=== PATIENT | male | born 1995 | race Caucasian/White ===

== ENCOUNTER → 2016-11-11 14:07 | Emergency (ER) | payer BC, OTHER ==
[2016-11-11 14:14] VITALS: BP 134/93
--- NOTE | 2016-11-11 15:26 | ED ---
Throat Pain/Nasal Congestion - HPI Summary HPI Summary: 21M presents with sore throat since last wed and then sinus pressure since last ngith. He was told has mono this sun. He prescribed cefuroxime and prednisone. last night develop sinus pain. no fever. has extreme pain in sinus given toradol and helped at clinic. He has been taking afrin past two days. He states pain is greatest on right side of face. He has productive cough but no SOB or chest pain. He states the pain in sinus was 10/10 but now is 3/10. He has been taking ibuprofen. He does not have history of sinus issues. He states his nose has been running. He admits to ear pain. He denies any abdominal pain, n/v. - History of Current Complaint Chief Complaint: EDGeneral Time Seen by Provider: 11/11/16 14:20 - Allergies/Home Medications Allergies/Adverse Reactions: Allergies Allergy/AdvReac Type Severity Reaction Status Date / Time cats Allergy Eyes Uncoded 11/11/16 14:14 Itchy/Swollen/Red/Watery PMH/Surg Hx/FS Hx/Imm Hx Endocrine/Hematology History: Denies: Hx Diabetes Cardiovascular History: Denies: Hx Hypertension, Hx Pacemaker/ICD History: Denies: Hx Renal Disease Sensory History: Denies: Hx Hearing Aid Psychiatric History: Denies: Hx Panic Disorder - Surgical History Surgery Procedure, Year, and Place: hx previous surgery right clavicle 2012, right thumb Infectious Disease History: No Infectious Disease History: Denies: Traveled Outside the [place] in Last 30 Days - Family History Known Family History: Negative: Respiratory Disease - Social History Alcohol Use: None Substance Use Type: Reports: None Smoking Status (MU): Never Smoked Tobacco Review of Systems Negative: Fever Positive: Sore Throat, Ear Ache, Nasal Discharge, Other - sinus tenderness Negative: Chest Pain Negative: Shortness Of Breath All Other Systems Reviewed And Are Negative: Yes Physical Exam Triage Information Reviewed: Yes Vital Signs On Initial Exam: Initial Vitals Temp Pulse Resp BP Pulse Ox 98.7 F 86 18 134/93 98 11/11/16 14:10 11/11/16 14:10 11/11/16 14:10 11/11/16 14:10 11/11/16 14:10 Vital Signs Reviewed: Yes Appearance: Positive: Well-Appearing Skin: Positive: Warm, Dry Head/Face: Positive: Normal Head/Face Inspection Eyes: Positive: Normal, EOMI, MAYCOL, Conjunctiva Clear ENT: Positive: Pharyngeal erythema, Nasal congestion, Nasal drainage, Tonsillar swelling, Other - uvula midline, soft palate symmetric, tenderness to sinuses. Negative: Tonsillar exudate, Trismus, Muffled/hoarse voice Neck: Positive: Supple, Nontender, No Lymphadenopathy Respiratory/Lung Sounds: Positive: Clear to Auscultation, Breath Sounds Present Cardiovascular: Positive: Normal, RRR Abdomen Description: Positive: Nontender, Soft Bowel Sounds: Positive: Present Neurological: Positive: Normal Diagnostics - Vital Signs Vital Signs Temp Pulse Resp BP Pulse Ox 11/11/16 14:10 98.7 F 86 18 134/93 98 - Laboratory Lab Statement: Any lab studies that have been ordered have been reviewed, and results considered in the medical decision making process. EENT Course/Dx - Course Course Of Treatment: 21M presents with sore throat since last sun and then sinus pressure since last ngith. He was told has mono this sun. He prescribed cefuroxime and prednisone. last night develop sinus pain. no fever. has extreme pain in sinus given toradol and helped at clinic. He has been taking afrin past two days. He states pain is greatest on right side of face. He has productive cough but no SOB or chest pain. He states the pain in sinus was 10/ 10 but now is 3/10. He has been taking ibuprofen. He does not have history of sinus issues. He states his nose has been running. He admits to ear pain. He denies any abdominal pain, n/v. on exam tenderness over sinuses. tonsils +2, uvula midline, soft palate symmetric. discussed likely still viral at this point. will add sudafed, flonase, percocet for intense pain, saline, and zytrec. will have continue steriod and antibiotic although at this point is unnecessary. told patient he may develop rash from antibiotic with mono. told not to take more afrin after today or will get rebound congestion. patient understands and agrees with plan. - Differential Diagnoses Differential Diagnoses: Allergic Rhinitis, Sinusitis, URI/Bronchitis, Other - mono - Diagnoses Provider Diagnoses: Sinusitis Discharge - Discharge Plan Condition: Good Disposition: HOME Prescriptions: Fluticasone NASAL SPRAY 50MCG* [Flonase NASAL SPRAY 50MCG*] 2 spray BOTH NARES DAILY #1 btl Pseudoephedrine TAB* [Sudafed TAB*] 60 mg PO Q6H PRN #20 tab PRN Reason: Congestion oxyCODONE/Acetamin 5/325 MG* [Percocet 5/325 TAB*] 1 tab PO Q6H PRN #12 tab MDD 4 PRN Reason: Pain - Severe Patient Education Materials: Rhinosinusitis (ED) Referrals: Enrico Preciado DO [Primary Care Provider] - Additional Instructions: Continue steroid as prescribed by masood Use saline spray in nose as much as needed Use intranasal steroid one spray each nostril twice a day Take sudafed every 6 hours Can finish afrin dose today but after that need to stop Take zytrec every 24 hours Take Tylenol or ibuprofen for headache every 6 hours, use percocet every 6 hours for extreme pain Follow up with L[facility] in 5 days if no improvement Return to ED if develop any new or worsening symptoms
== END | disposition home or self-care (01) ==
LOC: ED 14:07
DX: J32.9 Chronic sinusitis, unspecified (principal); J02.9 Acute pharyngitis, unspecified; H92.09 Otalgia, unspecified ear
CPT/HCPCS: 99282

== ENCOUNTER 2018-03-26 23:23 | Emergency (ER) | payer BC, OTHER ==
--- NOTE | 2018-03-27 00:24 | ED ---
Upper Extremity Pain - HPI Summary HPI Summary: 22 year old male presents with right ring finger dislocation. He states he jammed playing basketball. He's never injured this finger before. He is right- handed. He is a student. No numbness or tingling. Has no medical conditions. - History of Current Complaint Chief Complaint: EDExtremityUpper Stated Complaint: RT RING FINGER INJURY Time Seen by Provider: 03/26/18 23:57 - Allergies/Home Medications Allergies/Adverse Reactions: Allergies Allergy/AdvReac Type Severity Reaction Status Date / Time cats Allergy Eyes Uncoded 06/14/17 11:33 Itchy/Swollen/Red/Watery Home Medications: Home Medications NK [No Home Medications Reported] 03/27/18 [History Confirmed 03/27/18] PMH/Surg Hx/FS Hx/Imm Hx Endocrine/Hematology History: Denies: Hx Diabetes Cardiovascular History: Denies: Hx Hypertension, Hx Pacemaker/ICD History: Denies: Hx Renal Disease Sensory History: Denies: Hx Hearing Aid Psychiatric History: Denies: Hx Panic Disorder - Surgical History Surgery Procedure, Year, and Place: hx previous surgery right clavicle 2012, right thumb Infectious Disease History: No Infectious Disease History: Denies: Traveled Outside the [place] in Last 30 Days - Family History Known Family History: Negative: Respiratory Disease - Social History Alcohol Use: None Substance Use Type: Reports: None Smoking Status (MU): Never Smoked Tobacco Review of Systems Negative: Fever Negative: Chest Pain Negative: Shortness Of Breath Positive: Myalgia - right ring finger All Other Systems Reviewed And Are Negative: Yes Physical Exam Triage Information Reviewed: Yes Vital Signs On Initial Exam: Initial Vitals Temp Pulse Resp BP Pulse Ox 97.3 F 112 16 134/91 99 03/26/18 23:27 03/26/18 23:27 03/26/18 23:27 03/26/18 23:27 03/26/18 23:27 Vital Signs Reviewed: Yes Appearance: Positive: Well-Appearing Skin: Positive: Warm, Dry Head/Face: Positive: Normal Head/Face Inspection Eyes: Positive: Normal, Conjunctiva Clear ENT: Positive: Pharynx normal Respiratory/Lung Sounds: Positive: Clear to Auscultation, Breath Sounds Present Cardiovascular: Positive: Normal, RRR Musculoskeletal: Positive: Other - deformity to PIP right ring finger, capillary refill<2secs Neurological: Positive: Normal Psychiatric: Positive: Normal Procedures - Joint Reduction finger Joint Reduction Site: other Specify Other Joint Reduced: right ring finger Reduction Attempts: 1 Pre-Procedure NV Exam: Yes Diagnostics - Vital Signs Vital Signs Temp Pulse Resp BP Pulse Ox 03/26/18 23:27 97.3 F 112 16 134/91 99 - Laboratory Lab Statement: Any lab studies that have been ordered have been reviewed, and results considered in the medical decision making process. - Radiology finger Radiology Interpretation Completed By: ED Physician Summary of Radiographic Findings: dislocation with fracture Course/Dx - Course Course Of Treatment: 22 year old male presents with right ring finger dislocation. He states he jammed playing basketball. He's never injured this finger before. He is right-handed. He is a student. No numbness or tingling. Has no medical conditions. On exam has deformity noted to PIP of right ring finger. Neurovascular intact. Performed a digital block and reduced finger. xray shows dislocation with avulsion fracture. told to follow up with ortho as may have ligament injury with avulsion fracture. patient understand and agrees with plan. - Diagnoses Differential Diagnosis/HQI/PQRI: Positive: Contusion, Fracture (Closed), Other - dislocation Provider Diagnoses: Dislocation of right ring finger Discharge - Sign-Out/Discharge Documenting (check all that apply): Patient Departure Patient Received Moderate/Deep Sedation with Procedure: No - Discharge Plan Condition: Good Disposition: HOME Patient Education Materials: Finger Dislocation (ED) Referrals: Steven Robbins MD [Medical Doctor] - Additional Instructions: Keep finger in splint for next 5 days minimum Follow up with ortho Take tyenlol or ibuprofen for pain every 6 hours Return to ED if develop any new or worsening symptoms - Billing Disposition and Condition Condition: GOOD Disposition: Home
[2018-03-27 00:40] VITALS: BP 145/87
--- NOTE | 2018-03-27 16:36 | PN ---
Progress Note - Progress Note Date of Service: 03/25/18 Note: Minor discrepancy in finger right ring x-ray Fracture dislocation as read by radiologist. According to PA note, this was read as dislocation with avulsion fracture Patient has appropriate follow-up to orthopedic Nothing further is required at this time Patient was treated appropriately
== END 2018-03-27 00:39 | disposition home or self-care (01) ==
LOC: ED 23:23
DX: S62.624A Displaced fracture of middle phalanx of right ring finger, initial encounter for closed fracture (principal); W23.0XXA Caught, crushed, jammed, or pinched between moving objects, initial encounter; Y93.67 Activity, basketball; Y92.9 Unspecified place or not applicable
CPT/HCPCS: 26720; 73140; 99282